=== PATIENT | male | born 1995 | race Caucasian/White ===

== ENCOUNTER 2016-11-22 14:54 | Emergency (ER) | payer BC ==
--- NOTE | ~2016-11-22 | ER ---
[facility] AGE: 21 Y [address] ROOM: [place] [id number] LOCATION: [facility] ADMIT DATE: 11/22/2016 ER/Outpatient Report DISCHARGE DATE: FAMILY PHYSICIAN: Edilberto Hussein MD ATTENDING PHYSICIAN: Jessica Fan SEEN AT: 1505 hours. CHIEF COMPLAINT: Left shoulder pain. HISTORY OF PRESENT ILLNESS: The patient is a 21-year-old male who states last night he was coming down some stairs when he fell and injured his left shoulder. 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 He said he has noticed some tingling and numbness, some loss of motion especially abduction. Denies any previous injuries to that shoulder. ALLERGIES: NONE. HOME MEDICATIONS: None. MEDICAL HISTORY: Excludes any chronic diseases. SURGERIES: Had left elbow surgery. SOCIAL HISTORY: Chews tobacco. Denies alcohol consumption. REVIEW OF SYSTEMS: GENERAL: Health good. No recent fevers. MUSCULOSKELETAL: Includes left shoulder pain with loss of motion. NEURO: Has had some numbness and tingling to his hand. OBJECTIVE FINDINGS: VITAL SIGNS: His temperature is 98.2, his respiratory rate 18, pulse 97, blood pressure 148/93, his O2 sats 100%. GENERAL APPEARANCE: Alert and oriented. EXTREMITIES: Exam of the left shoulder showed no obvious deformity. He was tender over the AC joint. There was no significant step-off. Range of PATIENT'S NAME: [facility] AGE: 21 Y [address] ROOM: [place] [address] LOCATION: [facility] ADMIT DATE: 11/22/2016 ER/Outpatient Report DISCHARGE DATE: FAMILY PHYSICIAN: Edilberto Hussein MD ATTENDING PHYSICIAN: Jessica Fan motion, abduction was somewhat limited. VASCULAR: He had good radial pulse. NEURO: Sensation appeared grossly normal to light touch and pain. X-RAYS: Left shoulder three views did not show any bony injuries. ASSESSMENT: Left shoulder pain, possible very mild AC strain or separation. PLAN: Arm sling, recommend ibuprofen 600 mg 3 times a day for 5 days. Ice 10-15 minutes for every couple of hours. Recommend he follow up with a provider in the next 2-3 days for recheck. The patient verbalized understanding of x-ray results and our recommendations and agreed. SANTHOSH COSBY FOR MD FREDERICK HARTMANN/angeline /[id number] d: 11/22/16 1711 t: 11/25/16 0923, OUTPATIENT REPORT
== END 2016-11-22 15:30 | disposition disaster alternative care site (69) ==
LOC: GACC 14:54
DX: M25.512 Pain in left shoulder (principal); F17.220 Nicotine dependence, chewing tobacco, uncomplicated